=== PATIENT | male | born 1965 | race Two or more races ===

== ENCOUNTER 2017-12-20 03:32 | Outpatient (CLI) | payer SELFPAY ==
[2017-12-20 06:59] LABS: HEMOGLOBIN A1C 5.8 % (4.5-6.2)
[2017-12-20 07:12] LABS: CHOL/HDL RATIO 4.79 (0.00-4.99)
== END 2017-12-20 23:59 | disposition home or self-care (01) ==
LOC: HW HEART 03:32
DX: Z13.6 Encounter for screening for cardiovascular disorders (principal)
CPT/HCPCS: 36415

== ENCOUNTER 2022-03-30 08:09 | Outpatient (CLI) | payer SELFPAY | END 2022-03-30 23:59 | disposition home or self-care (01) | LOC: RAD 08:09 | PROVIDERS: ATTEND Psychiatry & Neurology Neurology | DX: R56.9 Unspecified convulsions (principal) | CPT/HCPCS: 95819 ==

== ENCOUNTER 2025-08-11 14:16 | Day surgery (SDC) | payer BC, SELFPAY ==
--- NOTE | 2025-08-06 08:57 | ELECTROCARDIOGRAPH REPORT ---
[facility] Test Date: 2025-08-06 Test Time: 08:54:35 Pat Name: OSVALDO YOON Department: [facility]-OR Patient ID: [facility]-[id number] Room: Gender: M Radiology Nurse: deepa : 1965 Requested By: EDVIN DEL RIO Order Number: [id number] Reading MD: Dr. ED Henao Measurements Intervals [place] Rate: 58 P: 10 CA: 210 QRS: -31 QRSD: 98 T: 37 QT: 408 QTc: 401 Interpretive Statements Sinus bradycardia Left axis deviation RSR' in V1 or V2, right VCD or RVH Electronically Signed On 08-06-2025 13:18:[address] ED Henao Please click the below link to view image of tracing.
[2025-08-06 08:59] LABS: MEAN PLATELET VOLUME 8.0 FL (7.4-10.4); PRE OP HEMATOCRIT 42.0 % (42.0-52.0); PRE OP HEMOGLOBIN 14.0 g/dL (14.0-17.9); PRE OP PLATELET COUNT 169 X10'3 (140-440); PRE OP WHITE BLOOD COUNT 4.6 10'3 (4.8-10.8); RED CELL DISTRIBUTION WIDTH 14.4 % (11.5-14.5)
[2025-08-06 09:29] LABS: CHOL/HDL RATIO 2.4 (0.00-4.99); CREATININE 1.00 MG/DL (0.60-1.10); LDL CHOLESTEROL 67 MG/DL (50-100); PRE OP ALT 39 U/L (30-65); PRE OP ANION GAP 5 (8-16); PRE OP AST 28 U/L (10-37); PRE OP BILIRUB, TOTAL 0.3 MG/DL (0.0-1.0); PRE OP GLUCOSE 99 MG/DL (70-104); PRE OP POTASSIUM 4.2 MMOL/L (3.4-5.1); PRE OP SODIUM 145 MMOL/L (135-145); TOTAL CARBON DIOXIDE 30.6 MMOL/L (24-32); eGFR 76 ML/MIN
--- NOTE | 2025-08-06 09:29 | RADIOLOGY REPORT ---
DI CHEST,TWO VIEWS CLINICAL HISTORY: PREOP/pain COMPARISON: None TECHNIQUE: Frontal and lateral view of the chest was obtained FINDINGS: Lines and Tubes: None Lungs: No focal consolidation. Pleura: No effusion. No pneumothorax. Cardiomediastinal contours: Unremarkable Bones: No acute osseous abnormality. IMPRESSION: No acute cardiopulmonary disease.
[2025-08-07 08:11] LABS: % FREE PSA 26.7 % (.); PROSTATE SPECIFIC AG, SERUM 1.5 ng/mL (0.0-4.0); VITAMIN D, 25-HYDROXY 72.9 ng/mL (30.0-100.0)
[~2025-08-11] VITALS: Ht 167.6 cm; Wt 72.1 kg
[~2025-08-11 14:16] MED LIST: CHOL10006 PO; MAGN400T29 PO; METF-900 PO; OMEG-166 PO; PANT40TA54 PO; ROSU10TA98 PO; SEMA1PEN3 SUBCUT; ringers solution, lacted 1,000 ML IV SCH
[2025-08-11 14:30] VITALS: BP 130/82; PULSE 59; RESP 16; TEMP 97.2; O2SAT 97
[2025-08-11] MEDS ORDERED: propofol inj 20 ML IV ONE (16:22)
[2025-08-11 16:31] VITALS: BP 90/49; PULSE 67; RESP 14; O2SAT 99
[2025-08-11 16:40] VITALS: BP 96/60; PULSE 65; RESP 21; O2SAT 98
[2025-08-11 16:50] VITALS: BP 95/62; PULSE 58; RESP 15; O2SAT 93
== END 2025-08-11 17:11 | disposition home or self-care (01) ==
LOC: OR 14:16
PROVIDERS: ATTEND Internal Medicine Gastroenterology
DX: K22.70 Barrett's esophagus without dysplasia (principal); K31.7 Polyp of stomach and duodenum; K21.9 Gastro-esophageal reflux disease without esophagitis; E78.5 Hyperlipidemia, unspecified; R00.1 Bradycardia, unspecified; R73.03 Prediabetes
CPT/HCPCS: 36415; 43239; 71046; 80053; 80061; 82306; 82607; 83036; 84153; 84154; 84439; 84443; 85025; 86140; 93005; J2704; J7120; Z7512; A4615